=== PATIENT | male | born 1930 | race African-American/Black ===

== ENCOUNTER 2016-08-30 09:39 | Observation (INO) | payer OTHER ==
--- NOTE | ~2016-08-30 | DS ---
Discharge Summary [facility] [address] [place]. [address] NAME: KRISTIE OCONNOR : 34 STATUS : ADM Claudia PAT#: [id number] AGE: 86 ADM/REG DATE : 08/30/16 MR#: [id number] REPORT SERV DATE: 09/05/16 DICTATED BY: Georgie LOERA DATE: 09/05/16 REPORT STATUS : Draft TRANSCRIBED BY: MODL DATE: 09/05/16 ADMISSION DATE: 08/30/2016 DISCHARGE DATE: 09/05/2016 DIAGNOSES AT TIME OF DISCHARGE: 1. Multiple falls/failure to thrive. 2. Urinary tract infection present on admission; status post treatment. 3. Acute kidney injury, present on admission, resolved. 4. 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 5. Hypertension. 6. Hyperlipidemia. CONSULTATION: None. PROCEDURES: None. For details of earlier hospital stay, please see interim summary dictated on 09/04/[address] Burciaga. HOSPITAL STAY: On 09/05/2016, the patient has been cleared and approved for transition to alf facility for ongoing rehabilitation. He has completed his antimicrobial therapy. His antihypertensive has been changed in the sense that his ADAMARIS inhibitor has been discontinued with adequate blood pressure control and improved kidney function. We are recommending an outpatient followup. A CT scan of his abdomen and pelvis in roughly 3-6 months to follow up with the lesion seen in the periappendiceal area on this admission of uncertain significance. The patient will continue his other medications per his med reconciliation form and have ongoing physical and occupational therapy at the alf facility. PETE/KIMMY Georgie Loera M.D. / [id number] CC: MD Michael Rea II, M.D.
--- NOTE | ~2016-08-30 | DS ---
Discharge Summary [facility] [address] [place]. [address] NAME: KRISTIE OCONNOR : 34 STATUS : ADM Claudia PAT#: [id number] AGE: 86 ADM/REG DATE : 08/30/16 MR#: [id number] REPORT SERV DATE: 09/04/16 DICTATED BY: ADOLFO RIDLEYREY ANATOLY DATE: 09/04/16 REPORT STATUS : Draft TRANSCRIBED BY: MODL DATE: 09/04/16 ADMISSION DATE: 08/30/2016 DISCHARGE DATE: 09/04/2016 DISCHARGE DIAGNOSES: 1. Weakness with recurrent falls. 2. Urinary tract infection with Escherichia coli. 3. Acute kidney injury. 4. Late effect of cerebrovascular accident with right hemiparesis. 5. Hypertension. 6. Periappendiceal mass of uncertain significance. 7. History of benign prostatic hyperplasia. 8. History of hyperlipidemia. BRIEF HISTORY OF PRESENT ILLNESS: The patient is an 86-year-old male with the above history who presented on [facility] due to recurrent falls, weakness, acute kidney injury, and urinary tract infection. For detailed history and physical examination, please see Dr. Agn' note from 08/30/2016. HOSPITAL COURSE: On admission, the patient had a white count of 16 with creatinine of 1.66. His urine showed 42 white cells with large leukocyte esterase, positive nitrites. He was started on Rocephin and urine culture returned positive with E. coli sensitive to Ancef, so he was switched to Duricef which he will complete a 10-day course. Currently, his white count has come down to 9. Vitals are stable and he is afebrile. His creatinine also returned to normal, currently 1.16. He had a CT of the abdomen and pelvis which was done which was essentially unremarkable except for an incidentally noted small low-density mass adjacent to the appendix which may be a lymph node complex cyst, but cannot exclude malignancy. Recommended followup CT in three months will be scheduled. Otherwise, the patient is stable for discharge. The PT has recommended half-way for subacute rehab. DISCHARGE MEDICATIONS: 1. Aspirin 81 mg p.o. daily. 2. Duricef 500 mg p.o. b.i.d. x5 more days. 3. Mevacor 20 mg p.o. daily. 4. Flomax 0.4 mg p.o. daily. 5. Catapres 0.2 mg p.o. daily. 6. Lotrel 10 mg/40 mg p.o. daily. DISCHARGE INSTRUCTIONS: The patient will be discharged to half-way for further rehab. He will need a followup CT of the abdomen and pelvis in three months to re-evaluate his periappendiceal mass which will be scheduled prior to his discharge. SHON/KIMMY Discharge Summary [address] [address] NAME: KRISTIE OCONNOR : 34 STATUS : ADM Claudia PAT#: [id number] AGE: 86 ADM/REG DATE : 08/30/16 MR#: [id number] REPORT SERV DATE: 09/04/16 DICTATED BY: REY MATA II DATE: 09/04/16 REPORT STATUS : Draft TRANSCRIBED BY: KIMMY DATE: 09/04/16 Rey Mata II, MD / [id number] CC: MD Michael Rea II, M.D.
--- NOTE | ~2016-08-30 | HP ---
History And Physical [place] [id number] [facility] [place]. [address] NAME: KRISTIE OCONNOR : 32 STATUS : ADM Claudia PAT#: [id number] AGE: 86 ADM/REG DATE : 08/30/16 MR#: [id number] REPORT SERV DATE: 08/30/16 DICTATED BY: KEON ANG DATE: 08/30/16 REPORT STATUS : Draft TRANSCRIBED BY: KIMMY DATE: 08/30/16 DATE OF ADMISSION: 08/30/2016 CHIEF COMPLAINT: Falls. HISTORY OF PRESENT ILLNESS: The patient is a very pleasant 86-year-old male. He has a finish off operator who is present, she is with him much of the day. He sleeps alone at night but the last 2 mornings, she has found him on the floor. Yesterday, he refused to come to the hospital, today he was agreeable. He is oriented to person, place, and time; however, he does not really talk without his finish off operator encouraging him. She states this is pretty normal for him. He scraped up his elbow and his back when he fell but she did not notice any other injuries and he seemed to be mentally about the same today; however, he has just been weak. He states he was generally weak and his legs gave way both times. He has not had fever or chills that he can recall. He denies dysuria. He denies new cough really. Denies nausea, vomiting, or diarrhea although she states his appetite has been diminished since over the last 48 hours. PAST MEDICAL HISTORY: Positive for 1. CVA with resultant right hemiparesis. 2. Hyperlipidemia. 3. Hypertension. 4. BPH. SOCIAL HISTORY: He does not smoke. He does not drink currently. He used to drink but he quit many years ago. He is and has a finish off operator, his son. He has a son but his son is not that involved with his care. FAMILY HISTORY: His mother had hypertension and his father had hypertension. His grandparents had hypertension. PAST SURGICAL HISTORY: He has had a right foot bunionectomy. ALLERGIES: NO KNOWN DRUG ALLERGIES. HOME MEDICATIONS: Reviewed and attached. REVIEW OF SYSTEMS: Full 10-point review of systems obtained. Pertinent positives are mentioned in the HPI. PHYSICAL EXAMINATION: VITAL SIGNS: Blood pressure 148/68, respiratory rate 22, sats 96%, temperature is 97.8, and pulse is 100. GENERAL: Well-developed male, elderly. HEENT: Normocephalic, atraumatic. Throat is clear. NECK: Supple. HEART: Regular rate and rhythm. History And Physical [place] [address] [place]. [address] NAME: KRISTIE OCONNOR : 32 STATUS : ADM Claudia PAT#: [id number] AGE: 86 ADM/REG DATE : 08/30/16 MR#: [id number] REPORT SERV DATE: 08/30/16 DICTATED BY: KEON ANG DATE: 08/30/16 REPORT STATUS : Draft TRANSCRIBED BY: KIMMY DATE: 08/30/16 LUNGS: Grossly clear. ABDOMEN: Soft, nontender, and nondistended. EXTREMITIES: Warm and dry. His left foot is a bit colder than the right foot, so I did go ahead and check his pulses, both pulses were not palpable; however, I got a Doppler and they were easily found with a Doppler in his dorsalis pedis. He can wiggle his toes and move his feet. He denies any ongoing leg pain. NEUROLOGIC: He is alert. He is oriented to person, place, and time. His left upper extremity has normal strength and tone. His right extremity is weak but this is chronic. His right lower extremity is about 3/5 weaker than the left, this is chronic. His left lower extremity is about 4/5 which is weak but symmetrical with his upper extremity. LABORATORY AND X-RAY DATA: Urinalysis shows large blood, large leukocyte esterase, positive nitrite, 42 whites, and 11 reds. Sodium is 142, potassium 5.1, chloride 106, CO2 of 25, BUN and creatinine 31 and 1.66. Glucose 117. LFTs are normal. CBC: White count 16, H and H 13 and 40, and platelets are 278. Shoulder film shows no acute fracture. He has some DJD with possible loose body which may be old, difficult to tell. EKG shows sinus rhythm, no acute ST-T wave changes. ASSESSMENT/PLAN: 1. Two falls secondary to generalized weakness, likely secondary to ongoing urinary tract infection. No acute neurological findings on exam. Pump Installation And Servicer states he is normal at his baseline as far as his mental status. We will simply follow his clinical course. I do not think he needs additional imaging. 2. Urinary tract infection. We will place him on IV Rocephin, provide IV fluids, culture his blood and urine. Rule out urinary obstruction. 3. Acute kidney injury. I am not sure if this is truly acute. I have no baseline creatinine for him. I am going to hold his ARB, give him fluids overnight, culture his urine. We will rule out urinary obstruction with CT abdomen and pelvis without contrast. If he has evidence of obstruction, then we will intervene accordingly. 4. Chronic right hemiparesis secondary to stroke. 5. History of hypertension, again holding his ARB and his calcium channel penelope. We will follow and see how his blood pressure does over the next 24 hours. He is going to get hydrated. 6. Right elbow pain after a fall. No evidence of acute fracture on x-ray. If it continues so, we may consider MRI. 7. Hyperlipidemia. Continue statin therapy. 8. BPH. Continue Flomax. 9. Disposition pending above aforementioned plan and workup. 10.Deep venous thrombosis prophylaxis. Subcutaneous heparin. SAMANTHA/KIMMY Keon Ang M.D. History And Physical [address] [address] NAME: KRISTIE OCONNOR : 34 STATUS : ADM Claudia PAT#: [id number] AGE: 86 ADM/REG DATE : 08/30/16 MR#: [id number] REPORT SERV DATE: 08/30/16 DICTATED BY: KEON ANG DATE: 08/30/16 REPORT STATUS : Draft TRANSCRIBED BY: MODL DATE: 08/30/16 / [id number] CC: Harpreet Wilkerson Jr, MD
[2016-08-30 09:44] LABS: BASOPHILS 0 %; EOSINOPHILS 0.1 %; EOSINOPHILS ABSOLUTE 0.02 10/3/uL (0.0-0.53); HEMATOCRIT 40.1 % (40.0-51.0); HEMOGLOBIN 13.2 g/dL (13.6-17.8); IMMATURE GRANULOCYTES 0.2 %; IMMATURE GRANULOCYTES ABSOLUTE 0.04 10/3/uL (0.0-0.11); LYMPHOCYTES 7.6 %; LYMPHOCYTES ABSOLUTE 1.27 10/3/uL (0.67-4.30); MEAN CORPUS HGB CONC 32.9 g/dL (32.0-36.0); MEAN CORPUSCULAR HEMOGLOB 30.2 pg (26.0-34.0); MEAN CORPUSCULAR VOLUME 91.8 fL (80-100); MEAN PLATELET VOLUME 10.5 fL (9.2-13.0); MONOCYTES 5.4 %; NEUTROPHILS 86.7 %; NEUTROPHILS ABSOLUTE 14.39 10/3/uL (2.02-8.40); PLATELET COUNT 278 10/3/uL (150-400); RBC DISTRIBUTION WIDTH 15.1 % (12.0-16.0); RED CELL COUNT 4.37 10/6/uL (4.7-6.1); WHITE BLOOD CELLS 16.6 10/3/uL (4.5-10.5)
[2016-08-30 09:48] LABS: MANUAL DIFF NO %
[2016-08-30 10:01] LABS: A/G RATIO 0.9 (0.7-1.9); ALBUMIN 3.8 G/DL (3.5-5.0); ALKALINE PHOSPHATASE 68 U/L (45-117); BUN (BLOOD UREA NITROGEN) 31 MG/DL (6-23); CALCIUM, SERUM 9.5 MG/DL (8.5-10.4); CHLORIDE, SERUM 106 MMOL/L (96-112); CO2 (CARBON DIOXIDE) 25 MMOL/L (24-34); CREATININE 1.66 MG/DL (0.70-1.30); GFR AFRICAN AMERICAN 43 ML/MIN (>=60); GFR NON AFRICAN AMERICAN 37 ML/MIN (>=60); GLOBULIN 4.4 G/DL (2.5-4.1); GLUCOSE, SERUM 117 MG/DL (60-99); POTASSIUM, SERUM 5.1 MMOL/L (3.5-5.3); SGOT(AST) 58 U/L (5-40); SGPT(ALT) 33 U/L (5-65); SODIUM, SERUM 142 MMOL/L (135-148); TOTAL BILIRUBIN 0.9 MG/DL (0-1.2); TOTAL PROTEIN 8.2 G/DL (6.0-8.5)
[2016-08-30 11:07] LABS: ASCORBIC ACID (UR NOT ORDER) NEG (NEG); BILIRUBIN, URINE NEGATIVE (NEG); ER URINALYSIS TAT 0 Hrs 10 Mins; KETONE, URINE 20 MG/DL (NEG); LEUKOCYTE ESTERASE(NOT OR LARGE (NEG); NITRITE (URINE) POS (NEG); WBC (NOT ORDERED) (RFLEX) 42 (0-5)
[2016-08-30] MEDS ORDERED: MEVACOR PO (12:08)
[2016-08-30] MEDS ORDERED: LOTREL1 CA5 PO (12:08)
[2016-08-30] MEDS ORDERED: CAT2 PO (12:08)
[2016-08-30] MEDS ORDERED: HALF81 PO (12:08)
[2016-08-30] MEDS ORDERED: FLOMAX4 PO (12:08)
[2016-08-31 08:33] LABS: BASOPHILS 0.2 %; BASOPHILS ABSOLUTE 0.02 10/3/uL (0.0-0.16); EOSINOPHILS 2.6 %; EOSINOPHILS ABSOLUTE 0.24 10/3/uL (0.0-0.53); HEMATOCRIT 33.8 % (40.0-51.0); HEMOGLOBIN 10.9 g/dL (13.6-17.8); IMMATURE GRANULOCYTES 0.3 %; IMMATURE GRANULOCYTES ABSOLUTE 0.03 10/3/uL (0.0-0.11); LYMPHOCYTES 25.1 %; LYMPHOCYTES ABSOLUTE 2.33 10/3/uL (0.67-4.30); MANUAL DIFF NO %; MEAN CORPUS HGB CONC 32.2 g/dL (32.0-36.0); MEAN CORPUSCULAR HEMOGLOB 29.5 pg (26.0-34.0); MEAN CORPUSCULAR VOLUME 91.6 fL (80-100); MEAN PLATELET VOLUME 10.3 fL (9.2-13.0); MONOCYTES 7.4 %; MONOCYTES ABSOLUTE 0.69 10/3/uL (0.21-1.20); NEUTROPHILS 64.4 %; NEUTROPHILS ABSOLUTE 5.99 10/3/uL (2.02-8.40); PLATELET COUNT 235 10/3/uL (150-400); RBC DISTRIBUTION WIDTH 15.3 % (12.0-16.0); RED CELL COUNT 3.69 10/6/uL (4.7-6.1); WHITE BLOOD CELLS 9.3 10/3/uL (4.5-10.5)
[2016-08-31 08:43] LABS: CHLORIDE, SERUM 111 MMOL/L (96-112); CO2 (CARBON DIOXIDE) 24 MMOL/L (24-34); CREATININE 1.25 MG/DL (0.70-1.30); GFR AFRICAN AMERICAN 61 ML/MIN (>=60); GFR NON AFRICAN AMERICAN 53 ML/MIN (>=60); SODIUM, SERUM 144 MMOL/L (135-148)
[2016-08-31 08:44] LABS: BUN (BLOOD UREA NITROGEN) 27 MG/DL (6-23); CALCIUM, SERUM 8.2 MG/DL (8.5-10.4); GLUCOSE, SERUM 85 MG/DL (60-99); POTASSIUM, SERUM 3.8 MMOL/L (3.5-5.3)
[2016-09-02 05:59] LABS: BUN (BLOOD UREA NITROGEN) 19 MG/DL (6-23); CALCIUM, SERUM 8.9 MG/DL (8.5-10.4); CHLORIDE, SERUM 107 MMOL/L (96-112); CO2 (CARBON DIOXIDE) 24 MMOL/L (24-34); CREATININE 1.16 MG/DL (0.70-1.30); GFR AFRICAN AMERICAN 67 ML/MIN (>=60); GFR NON AFRICAN AMERICAN 58 ML/MIN (>=60); GLUCOSE, SERUM 85 MG/DL (60-99); POTASSIUM, SERUM 4.1 MMOL/L (3.5-5.3); SODIUM, SERUM 140 MMOL/L (135-148)
[2016-09-04 08:48] LABS: BUN (BLOOD UREA NITROGEN) 20 MG/DL (6-23); CHLORIDE, SERUM 104 MMOL/L (96-112); CO2 (CARBON DIOXIDE) 25 MMOL/L (24-34); CREATININE 1.03 MG/DL (0.70-1.30); GFR AFRICAN AMERICAN 77 ML/MIN (>=60); GFR NON AFRICAN AMERICAN 66 ML/MIN (>=60); GLUCOSE, SERUM 80 MG/DL (60-99); POTASSIUM, SERUM 4.4 MMOL/L (3.5-5.3); SODIUM, SERUM 139 MMOL/L (135-148)
[2017-02-21] MEDS ORDERED: LOTREL1 CA5 PO (12:23)
[2017-02-21] MEDS ORDERED: ASAB PO (12:23)
[2017-02-21] MEDS ORDERED: CAT2 PO (12:24)
[2017-02-21] MEDS ORDERED: FLOMAX4 PO (12:24)
[2017-02-21] MEDS ORDERED: MEVACOR PO (12:25)
[2017-02-21] MEDS ORDERED: ZOFRAN4 PO (12:25)
== END 2016-09-05 16:04 | disposition home or self-care (01) ==
LOC: ER 09:39 → CDU1 13:06
PROVIDERS: Emergency Medicine; Internal Medicine
DX: N39.0 Urinary tract infection, site not specified (principal); R53.1 Weakness; N40.0 Benign prostatic hyperplasia without lower urinary tract symptoms; I10 Essential (primary) hypertension; N17.9 Acute kidney failure, unspecified; G81.91 Hemiplegia, unspecified affecting right dominant side; E78.5 Hyperlipidemia, unspecified; M25.521 Pain in right elbow; I82.409 Acute embolism and thrombosis of unspecified deep veins of unspecified lower extremity; Z98.890 Other specified postprocedural states; Z86.73 Personal history of transient ischemic attack (TIA), and cerebral infarction without residual deficits; Z91.81 History of falling; Z79.899 Other long term (current) drug therapy
CPT/HCPCS: 71010; 73030-RT; 74176; 80048; 80053; 81001; 82962; 83735; 85025; 87040; 87077; 87086; 87186; 93005; 96372; 96374; 96376; 97110-GP; 97116-GP; 97162-GP; 97166-GO; 99285; A9270-GY; G0378